=== PATIENT | female | born 1960 | race Caucasian/White ===

== ENCOUNTER 2018-05-17 07:25 | Emergency (ER) | payer SELFPAY ==
[~2018-05-17] VITALS: Ht 170.2 cm; Wt 88.3 kg
[2018-05-17] MEDS ORDERED: IV NORMAL SALINE 1000ML BAG 1,000 ML IV SCH (07:41)
[2018-05-17] MEDS ORDERED: IV NORMAL SALINE 1000ML BAG 1,000 ML IV ONE (07:45)
--- NOTE | 2018-05-17 07:55 | PHYS DOC ---
Past Medical History Past Medical History: Seizure Past Surgical History: Appendectomy, Cholecystectomy, Tubal ligation Smoking: Second-hand Adult General Chief Complaint Chief Complaint: NAUSEA/VOMITING/DIARRHA HPI HPI Patient is a pleasant 58-year-old female who presents to the emergency department for evaluation. She states she has been "sick" for the past 10 days. She states all had upper respiratory symptoms, and she began her illness with nasal congestion and a nonproductive cough. She states she has had a persistent nonproductive cough for the past several days. On , she developed nausea and vomiting as well as diarrhea. She states in the past 24 hours she has vomited 3 times and had 5 episodes of watery diarrhea. Both emesis and her stools have been nonbloody. She denies any recent travel or antibiotic use. She is not having any focal pain, but does complain of some diffuse myalgias. She has not had any fevers or chills. She states she feels generally weakened and dehydrated. She does appear tachycardic. She has not had any chest pain. She denies any abdominal pain. There are no alleviating or exacerbating factors to her symptoms. The patient has reported decreased urine output over the past 36 hours. Review of Systems Review of Systems Constitutional: Denies fever or chills. Reports general malaise. [] Eyes: Denies change in visual acuity, redness, or eye pain [] HENT: Denies nasal congestion or sore throat [] Respiratory: Denies productive cough or shortness of breath [] Cardiovascular: The patient denies any shortness of breath, chest pain, palpitations, or orthopnea [] GI: No additional information not addressed in HPI [] : Denies dysuria or hematuria [] Musculoskeletal: Denies back pain or joint pain. Reports myalgias. [] Integument: Denies rash or skin lesions [] Neurologic: Denies headache, focal weakness or sensory changes [] Endocrine: Denies polyuria or polydipsia [] All other systems were reviewed and found to be within normal limits, except as documented in this note. Current Medications Current Medications Current Medications Medications (Trade) Dose Ordered Sig/Jose Start Time Stop Time Status Last Admin Dose Admin Sodium Chloride 1,000 ml @ 1,000 mls/hr 1X ONCE 05/17/18 07:45 05/17/18 08:44 DC 05/17/18 08:47 1,000 MLS/HR Allergies Allergies Allergies Coded Allergies Type Severity Reaction Last Updated Verified No Known Drug Allergies 05/17/18 No Physical Exam Physical Exam PHYSICAL EXAM: CONSTITUTIONAL: Well developed, well nourished HEAD: normocephalic, atraumatic EENT: PERRL, EOMI. Conjunctivae normal color, sclerae non-icteric; dry mucous membranes. NECK: Supple, non-tender; no meningismus. LUNGS: Lungs CTA, breathing even and unlabored. Normal air movement. HEART: Regular tachycardia, no murmur CHEST: No deformity; non-tender ABDOMEN: The abdomen is soft, and non-tender, no masses or bruits. Normal bowel sounds are present. EXTREM: Normal ROM; no deformity, no calf tenderness. Normal pulses palpable in all extremities. There is no pedal edema. SKIN: No rash; no diaphoresis NEURO: Alert; normal speech and cognition; CN's grossly intact; strength grossly intact without focal deficit. BACK: No CVA TTP. Current Patient Data Vital Signs Vital Signs Date Time Temp Pulse Resp B/P (MAP) Pulse Ox O2 Delivery O2 Flow Rate FiO2 05/17/18 07:30 98.5 121 20 141/68 (92) 97 Room Air 98.5 Lab Values Laboratory Tests Test 05/17/18 07:50 05/17/18 08:05 05/17/18 09:20 Influenza Type A Antigen Negative (NEGATIVE) Influenza Type B Antigen Negative (NEGATIVE) White Blood Count 16.3 x10^3/uL (4.0-11.0) H Red Blood Count 4.53 x10^6/uL (3.50-5.40) Hemoglobin 14.8 g/dL (12.0-15.5) Hematocrit 43.1 % (36.0-47.0) Mean Corpuscular Volume 95 fL (79-100) Mean Corpuscular Hemoglobin 33 pg (25-35) Mean Corpuscular Hemoglobin Concent 35 g/dL (31-37) Red Cell Distribution Width 13.4 % (11.5-14.5) Platelet Count 158 x10^3/uL (140-400) Neutrophils (%) (Auto) 88 % (31-73) H Lymphocytes (%) (Auto) 7 % (24-48) L Monocytes (%) (Auto) 6 % (0-9) Eosinophils (%) (Auto) 0 % (0-3) Basophils (%) (Auto) 0 % (0-3) Neutrophils # (Auto) 14.3 x10^3uL (1.8-7.7) H Lymphocytes # (Auto) 1.1 x10^3/uL (1.0-4.8) Monocytes # (Auto) 0.9 x10^3/uL (0.0-1.1) Eosinophils # (Auto) 0.0 x10^3/uL (0.0-0.7) Basophils # (Auto) 0.0 x10^3/uL (0.0-0.2) Platelet Estimate Pending Sodium Level 138 mmol/L (136-145) Potassium Level 3.4 mmol/L (3.5-5.1) L Chloride Level 103 mmol/L (98-107) Carbon Dioxide Level 24 mmol/L (21-32) Anion Gap 11 (6-14) Blood Urea Nitrogen 13 mg/dL (7-20) Creatinine 1.3 mg/dL (0.6-1.0) H Estimated GFR (Cockcroft-Gault) 41.8 BUN/Creatinine Ratio 10 (6-20) Glucose Level 160 mg/dL (70-99) H Lactic Acid Level 1.4 mmol/L (0.4-2.0) Calcium Level 10.5 mg/dL (8.5-10.1) H Total Bilirubin 0.7 mg/dL (0.2-1.0) Aspartate Amino Transferase (AST) 14 U/L (15-37) L Alanine Aminotransferase (ALT) 17 U/L (14-59) Alkaline Phosphatase 150 U/L (46-116) H Total Protein 7.9 g/dL (6.4-8.2) Albumin 3.1 g/dL (3.4-5.0) L Albumin/Globulin Ratio 0.6 (1.0-1.7) L Lipase 81 U/L (73-393) Urine Collection Type Unknown Urine Color Yellow Urine Clarity Cloudy Urine pH 7.5 Urine Specific [place] 1.015 Urine Protein 100 mg/dL (NEG-TRACE) Urine Glucose (UA) Negative mg/dL (NEG) Urine Ketones (Stick) Negative mg/dL (NEG) Urine Blood Large (NEG) Urine Nitrite Positive (NEG) Urine Bilirubin Negative (NEG) Urine Urobilinogen Dipstick 1.0 mg/dL (0.2 mg/dL) Urine Leukocyte Esterase Small (NEG) Urine RBC 3-5 /HPF (0-2) Urine WBC 11-20 /HPF (0-4) Urine Squamous Epithelial Cells None /LPF Urine Bacteria Many /HPF (0-FEW) Laboratory Tests 05/17/18 08:05 Laboratory Tests 05/17/18 08:05 EKG EKG [] Radiology/Procedures Radiology/Procedures [PROCEDURE: CHEST AP ONLY EXAM: CHEST 1 VIEW History: Cough, vomiting, nausea COMPARISON: None available. TECHNIQUE: Single portable radiograph of the chest FINDINGS: The cardiac silhouette is unremarkable. Minimal left lung base airspace opacity likely atelectasis or infiltrate. IMPRESSION: Minimal left lung base airspace opacities likely atelectasis or infiltrate. Follow-up to resolution. ] Course & Med Decision Making Course & Med Decision Making Pertinent Labs and Imaging studies reviewed. (See chart for details) [10:25 AM: The patient's condition remains stable. She is feeling significantly better. Her heart rate is in the 90s at this time. She is not having any abdominal pain and has had no vomiting or diarrhea in the emergency department. I discussed test results with the patient, the need for close follow-up, and return cautions. ]Although I'm not highly suspicious that the patient has pneumonia, the elevated white blood count 10 combined with the x-ray interpretation does lend to this possibility. She does have a UTI, and will be treated with antibiotics to cover pneumonia, UTI, as well as the possibility of a bacterial component for her gastroenteritis, although this is not highly clinically suspect at this time, given her benign abdominal exam. Her abdomen was reexamined and remains benign without tenderness. She is not having abdominal pain at this time. Dragon Disclaimer Dragon Disclaimer This electronic medical record was generated, in whole or in part, using a voice recognition dictation system. Departure Departure Impression: Primary Impression: Nausea vomiting and diarrhea Additional Impression: UTI (urinary tract infection) Disposition: HOME, SELF-CARE Condition: STABLE Patient Instructions: Cough, Adult, Urinary Tract Infection, Viral Gastroenteritis Scripts Levofloxacin (LEVAQUIN) 500 Mg Tablet 1 TAB PO DAILY, #7 TAB Prov: AARON HIGHTOWER MD 05/17/18 Ondansetron Hcl (ZOFRAN) 4 Mg Tablet 1 TAB PO Q6HRS PRN for NAUSEA/VOMITING, #20 TAB Prov: AARON HIGHTOWER MD 05/17/18 Problem Qualifiers AARON HIGHTOWER MD May 17, 2018 07:55
--- NOTE | 2018-05-17 08:08 | RAD ---
EXAM: CHEST 1 VIEW History: Cough, vomiting, nausea COMPARISON: None available. TECHNIQUE: Single portable radiograph of the chest FINDINGS: The cardiac silhouette is unremarkable. Minimal left lung base airspace opacity likely atelectasis or infiltrate. IMPRESSION: Minimal left lung base airspace opacities likely atelectasis or infiltrate. Follow-up to resolution. Electronically signed by: Temo Colmenares MD (05/17/2018 8:04 AM) [facility]
[2018-05-17 08:28] LABS: CALCIUM 10.5 mg/dL (8.5-10.1); CREATININE 1.3 mg/dL (0.6-1.0); GFR 41.8; POTASSIUM 3.4 mmol/L (3.5-5.1)
[2018-05-17 08:29] LABS: BASO % 0 % (0-3); EOS % 0 % (0-3); HEMATOCRIT 43.1 % (36.0-47.0); HEMOGLOBIN 14.8 g/dL (12.0-15.5); LYMPH # 1.1 x10^3/uL (1.0-4.8); LYMPH % 7 % (24-48); MEAN CORPUSCULAR HEMOGLOBIN 33 pg (25-35); MEAN CORPUSCULAR HGB CONC 35 g/dL (31-37); MEAN CORPUSCULAR VOLUME 95 fL (79-100); MONO # 0.9 x10^3/uL (0.0-1.1); MONO % 6 % (0-9); NEUT # 14.3 x10^3uL (1.8-7.7); NEUT % 88 % (31-73); PLATELET COUNT 158 x10^3/uL (140-400); RED BLOOD COUNT 4.53 x10^6/uL (3.50-5.40); RED CELL DISTRIBUTION WIDTH 13.4 % (11.5-14.5); WHITE BLOOD COUNT 16.3 x10^3/uL (4.0-11.0)
[2018-05-17 08:34] LABS: ALBUMIN 3.1 g/dL (3.4-5.0); ALBUMIN/GLOBULIN RATIO 0.6 (1.0-1.7); TOTAL BILIRUBIN 0.7 mg/dL (0.2-1.0); TOTAL PROTEIN 7.9 g/dL (6.4-8.2)
[2018-05-17 08:37] LABS: INFLUENZA A PATIENT NEGATIVE (NEGATIVE); INFLUENZA B PATIENT NEGATIVE (NEGATIVE)
[2018-05-17 09:47] LABS: BILIRUBIN,URINE NEGATIVE (NEG); CLARITY,URINE CLOUDY; COLOR,URINE YELLOW; NITRITE,URINE POSITIVE (NEG); PH,URINE 7.5; PROTEIN,URINE 100 mg/dL (NEG-TRACE)
[2018-05-17 10:25] LABS: BACTERIA,URINE MANY /HPF (0-FEW)
[2018-05-17] MEDS ORDERED: ONDA4TAB7 PO (10:43)
[2018-05-17] MEDS ORDERED: LEVO500T59 PO (10:43)
[2018-05-17 10:50] VITALS: BP 122/61
[2018-05-17 11:04] LABS: % BANDS 4 % (0-9); % LYMPHS 9 % (24-48); % MONOS 7 % (0-10); % SEGS 80 % (35-66)
[2018-05-17 11:05] LABS: PLT ESTIMATE ADEQUATE (ADEQUATE)
== END 2018-05-17 10:58 | disposition home or self-care (01) ==
LOC: ER 07:25
DX: N39.0 Urinary tract infection, site not specified (principal); R05 Cough; R09.81 Nasal congestion; R11.2 Nausea with vomiting, unspecified; R19.7 Diarrhea, unspecified; R00.0 Tachycardia, unspecified; M79.18 Myalgia, other site; Z77.22 Contact with and (suspected) exposure to environmental tobacco smoke (acute) (chronic); Z90.89 Acquired absence of other organs; Z90.49 Acquired absence of other specified parts of digestive tract; Z98.51 Tubal ligation status
CPT/HCPCS: 36415; 71045; 80053; 81001; 83605; 83690; 85007; 85025; 87804; 96360; 96361; 99284; J7030